=== PATIENT | female | born 1980 | race Asian ===

== ENCOUNTER 2017-04-13 10:55 | Inpatient (IN) | payer OTHER ==
[~2017-04-13] VITALS: Ht 167.6 cm; Wt 81.6 kg
[2017-04-13] MEDS ORDERED: LACTATED RINGERS 1,000 ML IV SCH (11:57)
[2017-04-13] MEDS ORDERED: OXYTOCIN 10 UNITS/ML VIAL IM SCH (12:00)
[2017-04-13] MEDS ORDERED: METHYLERGONOVINE 0.2 MG/ML AMP IM PRN (12:00)
[2017-04-13] MEDS ORDERED: CARBOPROST 250 MCG/ML AMP IM PRN (12:00)
[2017-04-13] MEDS ORDERED: MISOPROSTOL 25 MCG TAB VG PRN (12:05)
[2017-04-13] MEDS ORDERED: OXYTOCIN 20 UNITS in LACTATED RINGERS 1,000 ML IV SCH (12:05)
[2017-04-13 12:49] LABS: BASOPHILS % (AUTO) 0.4 % (0.0-2.0); EOSINOPHILS # (AUTO) 0.1 K/uL (0-0.4); EOSINOPHILS % (AUTO) 0.6 % (0.0-4.0); HEMATOCRIT 35.4 % (36-48); HEMOGLOBIN 11.9 g/dL (12.0-16.0); LYMPHOCYTES # (AUTO) 1.3 K/uL (2.5-16.5); LYMPHOCYTES % (AUTO) 15.2 % (20.5-51.1); MEAN CORPUSCULAR HEMOGLOBIN 30 pg (27-31); MEAN CORPUSCULAR HGB CONC 34 g/dL (33-37); MEAN CORPUSCULAR VOLUME 88 fL (80-94); MONOCYTES # (AUTO) 0.8 K/uL (0.8-1.0); MONOCYTES % (AUTO) 8.7 % (1.7-9.3); NEUTROPHILS # (AUTO) 6.5 K/uL (1.8-7.7); NEUTROPHILS % (AUTO) 75.1 % (42.2-75.2); PLATELET COUNT (AUTO) 151 K/uL (140-450); RED BLOOD CELL COUNT(AUTO) 4.03 MIL/uL (4.20-5.40); RED CELL DISTRIBUTION WIDTH 13.4 % (11.6-13.7); WHITE BLOOD COUNT (AUTO) 8.7 K/uL (4.8-10.8)
[2017-04-13 12:51] LABS: BILIRUBIN,URINE NEGATIVE (NEGATIVE); BLOOD, URINE TRACE-I (NEGATIVE); COLOR,URINE YELLOW (YELLOW); LEUKOCYTE ESTERASE ,URINE 1+ (NEGATIVE); NITRITE, URINE NEGATIVE (NEGATIVE); UGLUCOSE NEGATIVE (NEGATIVE)
[2017-04-13 12:55] LABS: APPEARANCE,URINE HAZY (CLEAR)
[2017-04-13 13:00] LABS: RBC,URINE 0-5 (RARE) /HPF (0-5); WBC,URINE 0-5 (RARE) /HPF (0-5)
[2017-04-13] MEDS ORDERED: MISOPROSTOL 25 MCG TAB ONE ×2 (13:34→20:23)
[2017-04-14 00:45] VITALS: BP 103/73
[2017-04-14] MEDS ORDERED: MISOPROSTOL 25 MCG TAB ONE ×2 (01:28→05:47)
--- NOTE | 2017-04-14 08:53 | NUR ---
PATIENT HAS BEEN SCREENED AND CATEGORIZED LOW NUTRITION RISK. PATIENT WILL BE SEEN WITHIN 7 DAYS OF ADMISSION. 04/19/[address]
[2017-04-14] MEDS ORDERED: ROPIVACAINE 0.2%/NS PREMIX 250 ML EPI ONE (09:59)
[2017-04-14] MEDS ORDERED: OXYTOCIN 10 UNITS/ML VIAL ONE (11:03)
[2017-04-14] MEDS ORDERED: METHYLERGONOVINE 0.2 MG/ML AMP IM PRN (20:10)
[2017-04-14] MEDS ORDERED: IBUPROFEN 800 MG TAB PO PRN (20:10)
[2017-04-14] MEDS ORDERED: oxyCODONE/APAP 5/325 MG 1 TAB TAB PO PRN (20:10)
[2017-04-14] MEDS ORDERED: INFLUENZA VIRUS VACCINE QUAD 0.5 ML SYR IMVAC SCH (20:10)
[2017-04-14] MEDS ORDERED: METHYLERGONOVINE 0.2 MG TAB PO PRN (20:10)
[2017-04-14] MEDS ORDERED: HYDROcodone/APAP 5/325 MG 1 TAB TAB PO PRN (20:10)
[2017-04-14] MEDS ORDERED: DOCUSATE SOD/SENNA 50/8.6 MG 1 TAB PO SCH (21:00)
[2017-04-15 05:35] LABS: HEMATOCRIT 30.6 % (36-48); HEMOGLOBIN 10.2 g/dL (12.0-16.0)
[2017-04-15] MEDS ORDERED: DOCUSATE SOD/SENNA 50/8.6 MG 1 TAB PO SCH (21:00)
== END 2017-04-16 12:10 | disposition home or self-care (01) | DRG 560 ==
LOC: MFCC 10:55 → MLD 04-14 08:32 → MFCC 04-14 18:08
PROVIDERS: ADMIT Obstetrics & Gynecology; ATTEND Obstetrics & Gynecology
PROC: 10E0XZZ Delivery of Products of Conception, External Approach (ICD-10-PCS; principal; 2017-04-14)
PROC: 0KQM0ZZ Repair Perineum Muscle, Open Approach (ICD-10-PCS; 2017-04-14)
PROC: 00HU33Z Insertion of Infusion Device into Spinal Canal, Percutaneous Approach (ICD-10-PCS; 2017-04-14)
PROC: 3E0S3BZ Introduction of Anesthetic Agent into Epidural Space, Percutaneous Approach (ICD-10-PCS; 2017-04-14)
PROC: 3E0234Z Introduction of Serum, Toxoid and Vaccine into Muscle, Percutaneous Approach (ICD-10-PCS; 2017-04-14)
DX: O77.0 Labor and delivery complicated by meconium in amniotic fluid (principal); O70.1 Second degree perineal laceration during delivery; Z37.0 Single live birth; Z3A.40 40 weeks gestation of pregnancy; Z23 Encounter for immunization
CPT/HCPCS: 36415; 59200; 59409; 81001; 85018; 85025; 86592; 86886; 86900; 86901; 87086; 90658; 90715; J2590; J2795; J7120